=== PATIENT | female | born 1940 | race Caucasian/White ===

== ENCOUNTER 2018-08-23 06:15 | Inpatient (IN) ==
[2018-08-23] MEDS ORDERED: Metoprolol Tartrate 25 MG Tablet PO ONE (06:41)
[2018-08-23] MEDS ORDERED: Chlorhexidine Gluconate 2% 1 Pack (2 Cloths) TOPICAL ONE (06:41)
[2018-08-23] MEDS ORDERED: HYDROmorphone PF Inj 2 MG/ML Vial ONE (06:43)
[2018-08-23] MEDS ORDERED: Sugammadex Inj 200 MG/2 ML Vial IV.PUSH ONE (06:43)
[2018-08-23] MEDS ORDERED: ceFAZolin 2 GM IV; once IV.SIG PRN (06:46)
[2018-08-23] MEDS ORDERED: Sodium Chlor 0.9% Inj 500 ML IV.SIG SCH (07:00)
[2018-08-23] MEDS ORDERED: Levothyroxine 50 MCG Tablet PO ONE (07:45)
--- NOTE | 2018-08-23 10:18 | P.OP ---
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 Request were made for bilateral ureteral catheter insertion. Patient was brought to the operating room placed in the dorsolithotomy position. She was prepped and draped you sterile fashion and preprocedure antibiotics were administered. General endotracheal tube anesthesia was also administered. 22 Polish cystoscope was inserted in the bladder and the ureteral orifice was identified a 5 Polish opening catheter was inserted into the left ureteral orifice without difficulty and up into the kidney. This was again repeated on the right side without difficulty. The Ng was inserted and the catheters were attached to the Ng. The patient tolerated procedure well.
[2018-08-23] MEDS ORDERED: Lidocaine PF 1% Inj 5 ML Syringe OTHER ONE (12:00)
[2018-08-23] MEDS ORDERED: Phenylephrine/NS 1000 MCG/10ML Syringe IV.PUSH ONE (12:00)
[2018-08-23] MEDS ORDERED: Clotrimazole 1% Cream 15 GM Tube TOPICAL PRN (13:51)
[2018-08-23] MEDS ORDERED: Naloxone Inj 0.4 MG/ML Vial IV.PUSH PRN (14:05)
[2018-08-23] MEDS ORDERED: fentaNYL Citrate Inj 100 MCG/2 ML Ampul ONE (14:24)
[2018-08-23 14:46] LABS: Baso % (Auto) 0.2 % (0.0-2.0); Hematocrit 29.2 % (35.0-46.0); Hemoglobin 9.5 gm/dL (11.6-15.3); Lymph # (Auto) 0.9 th/mm3 (1.0-4.8); Lymph % (Auto) 8.5 % (9.0-44.0); Mean Corpuscular HGB Conc 32.6 % (32.0-36.0); Mean Corpuscular Hemoglobin 28.9 pg (27.0-34.0); Mean Corpuscular Volume 88.8 fL (80.0-100.0); Mean Platelet Volume 9.5 fL (7.0-11.0); Mono # (Auto) 0.4 th/mm3 (0.0-0.9); Mono % (Auto) 3.6 % (0.0-8.0); Neut # (Auto) 9.6 th/mm3 (1.8-7.7); Neut % (Auto) 87.7 % (16.0-70.0); Platelet Count 179 th/mm3 (150-450); Red Blood Count 3.29 mil/mm3 (4.00-5.30); White Blood Count 10.9 th/mm3 (4.0-11.0)
[2018-08-23] MEDS: Dextrose 5%/NaCl 0.9% Inj 1,000 ML IV.CONT SCH (14:48)
[2018-08-23] MEDS: Morphine Inj 30 MG/30 ML PCA.VIAL PCA PRN (15:17)
[2018-08-23 15:26] LABS: Calcium 7.5 mg/dL (8.5-10.1)
[2018-08-23 15:29] LABS: Potassium 3.4 meq/L (3.5-5.1)
[2018-08-23] MEDS: Dextrose 5%/NaCl 0.9% Inj 1,000 ML IV.SIG SCH ×2 (16:00→17:42)
[2018-08-23] MEDS: ceFAZolin Inj 1,000 MG in Sodium Chlor 0.9% Inj 100 ML IV.SIG SCH (18:51)
[2018-08-23] MEDS: Heparin - SQ 10,000 UNITS/ML Vial SQ SCH (20:59)
[2018-08-23] MEDS: Famotidine PF Inj 20 MG/2 ML Vial IV.PUSH SCH (21:00)
[2018-08-24] MEDS: ceFAZolin Inj 1,000 MG in Sodium Chlor 0.9% Inj 100 ML IV.SIG SCH ×2 (02:12→10:00)
[2018-08-24] MEDS: Dextrose 5%/NaCl 0.9% Inj 1,000 ML IV.CONT SCH ×3 (02:12→14:25)
[2018-08-24] MEDS: Levothyroxine 50 MCG Tablet PO SCH (06:16)
[2018-08-24 07:00] LABS: Baso % (Auto) 0.2 % (0.0-2.0); Eos % (Auto) 0.1 % (0.0-4.0); Hemoglobin 9.8 gm/dL (11.6-15.3); Lymph # (Auto) 0.7 th/mm3 (1.0-4.8); Lymph % (Auto) 5.1 % (9.0-44.0); Mean Corpuscular HGB Conc 32.7 % (32.0-36.0); Mean Corpuscular Hemoglobin 28.6 pg (27.0-34.0); Mean Corpuscular Volume 87.6 fL (80.0-100.0); Mean Platelet Volume 9.7 fL (7.0-11.0); Mono # (Auto) 0.6 th/mm3 (0.0-0.9); Mono % (Auto) 4.7 % (0.0-8.0); Neut % (Auto) 89.9 % (16.0-70.0); Platelet Count 204 th/mm3 (150-450); Red Blood Count 3.42 mil/mm3 (4.00-5.30); Red Cell Distribution Width 18.6 % (11.6-17.2); White Blood Count 13.4 th/mm3 (4.0-11.0)
[2018-08-24 07:33] LABS: Calcium 7.9 mg/dL (8.5-10.1)
[2018-08-24 07:38] LABS: Potassium 2.4 meq/L (3.5-5.1)
[2018-08-24] MEDS ORDERED: Potassium Chloride 25 MEQ Effervescent Tablet PO PRN (08:53)
[2018-08-24] MEDS ORDERED: Potassium Chlor 40 mEq Premix 40 MEQ/100 ML PIGGYBACK IV.SIG PRN ×2 (08:53)
[2018-08-24] MEDS ORDERED: Potassium Chlor 20 mEq Premix 20 MEQ/100 ML PIGGYBACK IV.SIG PRN (08:53)
[2018-08-24] MEDS: Heparin - SQ 10,000 UNITS/ML Vial SQ SCH ×2 (09:46→20:51)
[2018-08-24] MEDS: Famotidine PF Inj 20 MG/2 ML Vial IV.PUSH SCH ×2 (09:48→20:51)
[2018-08-24] MEDS: Potassium Chlor 20 mEq Premix 20 MEQ/100 ML PIGGYBACK IV.SIG SCH ×2 (09:49→12:00)
--- NOTE | 2018-08-24 11:11 | P.PN ---
Subjective Interval history: POD#1 s/p robotic LAR, COLLIN, SBR, TD splenic flexure comfortable, no nausea Physical Exam Vital signs: Vital Signs 08/23/18 14:12 08/23/18 14:15 08/23/18 14:30 Temperature 95.6 F L Pulse Rate 80 79 81 Respiratory Rate 20 15 13 Blood Pressure 136/99 H 142/65 H 137/65 Pulse Oximetry 100 100 100 08/23/18 14:45 08/23/18 14:49 08/23/18 15:00 Temperature 98 F Pulse Rate 80 79 Respiratory Rate 14 15 Blood Pressure 138/65 134/63 Pulse Oximetry 100 100 100 08/23/18 15:25 08/23/18 16:00 08/23/18 16:26 Temperature 95.8 F L Pulse Rate 83 90 Respiratory Rate 16 Blood Pressure 148/71 H Pulse Oximetry 100 08/23/18 17:00 08/23/18 17:05 08/23/18 17:37 Temperature 96.4 F L Pulse Rate 92 H Respiratory Rate 16 Blood Pressure Pulse Oximetry 08/23/18 17:42 08/23/18 18:37 08/23/18 19:00 Temperature 97.4 F L 97.8 F Pulse Rate 92 H 94 H Respiratory Rate 18 Blood Pressure 143/65 H Pulse Oximetry 100 08/23/18 20:00 08/23/18 21:00 08/23/18 22:00 Temperature Pulse Rate 92 H 100 H 94 H Respiratory Rate Blood Pressure Pulse Oximetry 08/23/18 23:00 08/24/18 00:00 08/24/18 01:00 Temperature 97.4 F L Pulse Rate 100 H 94 H 94 H Respiratory Rate 16 Blood Pressure 138/63 Pulse Oximetry 98 08/24/18 02:00 08/24/18 03:00 08/24/18 04:00 Temperature 97.8 F Pulse Rate 92 H 104 H 100 H Respiratory Rate 16 Blood Pressure 138/64 Pulse Oximetry 98 08/24/18 05:00 08/24/18 06:00 Temperature Pulse Rate 99 H 102 H Respiratory Rate Blood Pressure Pulse Oximetry Intake & Output 08/23/18 08/24/18 08/24/18 18:59 06:59 18:59 Intake Total 2370 / 2370 2680 / 2680 100 / 100 Output Total 250 / 250 1175 / 1175 Balance 2120 / 2120 1505 / 1505 100 / 100 Weight 59.5 kg Intake: IV 2250 / 2250 2200 / 2200 100 / 100 D5W/Normal Saline Inj 1,000 ML 1000 / 1000 @ 125 mls/hr IV.CONT .Q8H [facility] Rx#:[id number] D5W/Normal Saline Inj 1,000 ML 1000 / 1000 @ 125 mls/hr IV.SIG .Q8H [facility] Rx #:[id number] LR 1000 mL Inj 1,000 ML @ 30 2000 / 2000 mls/hr IV.SIG .Q24H [facility] Rx#: [id number] Ancef 2 GM Premix Inj 2 gm In 50 / 50 50 ml @ 100 mls/hr IV.SIG [employer] PRN Rx#:[id number] Ancef Inj 1,000 MG In NS Inj 200 / 200 100 ML @ 200 mls/hr IV.SIG Q8H [facility] Rx#:[id number] Flagyl 500 MG Inj 100 ML @ 200 200 / 200 100 / 100 mls/hr IV.SIG Q8H [facility] Rx#: [id number] Oral 120 / 120 480 / 480 Output: Urine 150 / 150 750 / 750 Estimated Blood Loss 100 / 100 Urine Amount (Catheter) 425 / 425 Indwelling Urethral Catheter 425 / 425 Other: # Voids 2 - Routine Abdominal Exam Comments: soft, nondistended, tender dressings c/d/i - Urinary Catheter Management Indwelling Urethral Catheter Cath placed during this visit: yes Reason for continuing: Hourly intake/output Insertion date: 08/23/18 Results - Labs CBC & Chem 7: 08/24/18 06:20 08/24/18 06:20 Laboratory Results - last 24 hr 08/23/18 08/23/18 08/24/18 14:30 14:30 06:20 WBC 10.9 13.4 H RBC 3.29 L 3.42 L Hgb 9.5 L 9.8 L Hct 29.2 L 30.0 L MCV 88.8 87.6 MCH 28.9 28.6 MCHC 32.6 32.7 RDW 19.0 H 18.6 H Plt Count 179 204 MPV 9.5 9.7 Neut % (Auto) 87.7 H 89.9 H Lymph % (Auto) 8.5 L 5.1 L [place] % (Auto) 3.6 4.7 Eos % (Auto) 0.0 0.1 Baso % (Auto) 0.2 0.2 Neut # (Auto) 9.6 H 12.0 H Lymph # (Auto) 0.9 L 0.7 L [place] # (Auto) 0.4 0.6 Eos # (Auto) 0.0 0.0 Baso # (Auto) 0.0 0.0 WBC Differential . . Differential Comment Auto diff final Auto diff final Sodium 139 Potassium 3.4 L Chloride 97 L Carbon Dioxide 33.0 H Anion Gap 9 BUN 18 Creatinine 1.14 H Estimated GFR 46 L Random Glucose 141 H Calcium 7.5 L 08/24/18 06:20 WBC RBC Hgb Hct MCV MCH MCHC RDW Plt Count MPV Neut % (Auto) Lymph % (Auto) [place] % (Auto) Eos % (Auto) Baso % (Auto) Neut # (Auto) Lymph # (Auto) [place] # (Auto) Eos # (Auto) Baso # (Auto) WBC Differential Differential Comment Sodium 140 Potassium 2.4 L* D Chloride 100 Carbon Dioxide 31.0 Anion Gap 9 BUN 11 Creatinine 0.97 Estimated GFR 56 L Random Glucose 171 H Calcium 7.9 L Assessment and Plan - Assessment (1) Colovaginal fistula Code(s): N82.4 - Other female intestinal-genital tract fistulae Status: Acute (2) Diverticulitis Code(s): K57.92 - Diverticulitis of intestine, part unspecified, without perforation or abscess without bleeding Status: Acute Plan: Advance diet Mobilize Replace K D/C robles
[2018-08-24] MEDS: Morphine Inj 30 MG/30 ML PCA.VIAL PCA PRN (18:34)
[2018-08-24 20:06] LABS: Calcium 8.1 mg/dL (8.5-10.1); Carbon Dioxide 26.3 meq/L (21.0-32.0); Potassium 3.1 meq/L (3.5-5.1)
[2018-08-24] MEDS: Potassium Chlor 20 mEq Premix 20 MEQ/100 ML PIGGYBACK IV.SIG PRN (22:29)
[2018-08-25] MEDS: Potassium Chlor 20 mEq Premix 20 MEQ/100 ML PIGGYBACK IV.SIG PRN ×3 (00:15→04:20)
[2018-08-25] MEDS: Dextrose 5%/NaCl 0.9% Inj 1,000 ML IV.CONT SCH (04:20)
[2018-08-25] MEDS: Levothyroxine 50 MCG Tablet PO SCH (05:17)
[2018-08-25 07:54] LABS: Baso % (Auto) 0.5 % (0.0-2.0); Eos % (Auto) 0.1 % (0.0-4.0); Hematocrit 27.6 % (35.0-46.0); Lymph # (Auto) 1.1 th/mm3 (1.0-4.8); Lymph % (Auto) 12.7 % (9.0-44.0); Mean Corpuscular HGB Conc 32.8 % (32.0-36.0); Mean Corpuscular Hemoglobin 28.9 pg (27.0-34.0); Mean Corpuscular Volume 88.2 fL (80.0-100.0); Mean Platelet Volume 9.7 fL (7.0-11.0); Mono # (Auto) 0.7 th/mm3 (0.0-0.9); Mono % (Auto) 8.1 % (0.0-8.0); Neut # (Auto) 6.9 th/mm3 (1.8-7.7); Neut % (Auto) 78.6 % (16.0-70.0); Platelet Count 219 th/mm3 (150-450); Red Blood Count 3.13 mil/mm3 (4.00-5.30); Red Cell Distribution Width 18.9 % (11.6-17.2); White Blood Count 8.7 th/mm3 (4.0-11.0)
[2018-08-25 08:25] LABS: Calcium 8.1 mg/dL (8.5-10.1); Carbon Dioxide 28.5 meq/L (21.0-32.0)
[2018-08-25] MEDS: Heparin - SQ 10,000 UNITS/ML Vial SQ SCH ×2 (08:42→20:47)
[2018-08-25] MEDS: Famotidine PF Inj 20 MG/2 ML Vial IV.PUSH SCH ×2 (08:43→20:48)
--- NOTE | 2018-08-25 11:55 | P.PN ---
Subjective Interval history: POD#2 s/p robotic LAR, SBO, COLLIN, TD splenic flexure comfortable, minimal pain Physical Exam Vital signs: Vital Signs 08/24/18 12:00 08/24/18 13:00 08/24/18 14:00 Temperature Pulse Rate 96 H 101 H 98 H Respiratory Rate Blood Pressure Pulse Oximetry 08/24/18 15:00 08/24/18 16:00 08/24/18 17:00 Temperature 97.9 F Pulse Rate 101 H 114 H 114 H Respiratory Rate 16 Blood Pressure 116/59 L Pulse Oximetry 96 08/24/18 18:00 08/24/18 19:00 08/24/18 20:00 Temperature 97.7 F Pulse Rate 117 H 117 H 106 H Respiratory Rate 18 Blood Pressure 109/65 Pulse Oximetry 97 08/24/18 21:00 08/24/18 22:00 08/24/18 23:00 Temperature 98.1 F Pulse Rate 104 H 100 H 99 H Respiratory Rate 16 Blood Pressure 103/55 L Pulse Oximetry 98 08/25/18 00:00 08/25/18 01:00 08/25/18 02:00 Temperature Pulse Rate 96 H 96 H 96 H Respiratory Rate Blood Pressure Pulse Oximetry 08/25/18 03:00 08/25/18 04:00 08/25/18 05:00 Temperature 98.2 F Pulse Rate 98 H 94 H 99 H Respiratory Rate 14 Blood Pressure 117/60 Pulse Oximetry 100 08/25/18 06:00 08/25/18 07:00 08/25/18 08:00 Temperature 98.5 F Pulse Rate 98 H 88 98 H Respiratory Rate 14 Blood Pressure 124/76 Pulse Oximetry 96 08/25/18 09:00 08/25/18 10:00 08/25/18 11:00 Temperature 98.1 F Pulse Rate 122 H 99 H 94 H Respiratory Rate 16 Blood Pressure 108/53 L Pulse Oximetry 100 Intake & Output 08/24/18 08/25/18 08/25/18 18:59 06:59 18:59 Intake Total 2700 / 2700 1640 / 1640 Output Total 1500 / 1500 Balance 1200 / 1200 1640 / 1640 Weight 60.5 kg Intake: IV 1500 / 1500 1400 / 1400 D5W/Normal Saline Inj 1,000 ML 1000 / 1000 1000 / 1000 @ 75 mls/hr IV.CONT .[id number] [facility] Rx#:[id number] KCl 20 mEq Premix Inj 20 meq In 200 / 200 400 / 400 100 ml @ 50 mls/hr IV.SIG Q2H [facility] Rx#:[id number] Ancef Inj 1,000 MG In NS Inj 100 / 100 100 ML @ 200 mls/hr IV.SIG Q8H [facility] Rx#:[id number] Flagyl 500 MG Inj 100 ML @ 200 200 / 200 mls/hr IV.SIG Q8H [facility] Rx#: [id number] Oral 1200 / 1200 240 / 240 Output: Urine 400 / 400 Urine Amount (Catheter) 1100 / 1100 Indwelling Urethral Catheter 1100 / 1100 Other: # Voids 3 - Routine Abdominal Exam Comments: abdomen soft, mild distension, tender wounds clean - Urinary Catheter Management Indwelling Urethral Catheter Cath placed during this visit: yes, but has since been removed by the nurse Reason for continuing: Decision to DC catheter Insertion date: 08/23/18 Removal date: 08/24/18 Removal time: 14:00 Results - Labs CBC & Chem 7: 08/25/18 07:11 08/25/18 07:11 Laboratory Results - last 24 hr 08/24/18 08/25/18 08/25/18 19:16 07:11 07:11 WBC 8.7 RBC 3.13 L Hgb 9.0 L Hct 27.6 L MCV 88.2 MCH 28.9 MCHC 32.8 RDW 18.9 H Plt Count 219 MPV 9.7 Neut % (Auto) 78.6 H Lymph % (Auto) 12.7 [place] % (Auto) 8.1 H Eos % (Auto) 0.1 Baso % (Auto) 0.5 Neut # (Auto) 6.9 Lymph # (Auto) 1.1 [place] # (Auto) 0.7 Eos # (Auto) 0.0 Baso # (Auto) 0.0 WBC Differential . Differential Comment Auto diff final Sodium 142 144 Potassium 3.1 L 4.0 D Chloride 107 109 H Carbon Dioxide 26.3 28.5 Anion Gap 9 7 BUN 8 7 Creatinine 0.90 0.79 Estimated GFR 61 L 70 L Random Glucose 150 H 119 H Calcium 8.1 L 8.1 L Assessment and Plan - Assessment (1) Colovaginal fistula Code(s): N82.4 - Other female intestinal-genital tract fistulae Status: Acute (2) Diverticulitis Code(s): K57.92 - Diverticulitis of intestine, part unspecified, without perforation or abscess without bleeding Status: Acute Plan: Advance diet Mobilize transfer to N
[2018-08-26] MEDS: Dextrose 5%/NaCl 0.9% Inj 1,000 ML IV.CONT SCH (01:03)
[2018-08-26] MEDS: Levothyroxine 50 MCG Tablet PO SCH (05:52)
--- NOTE | 2018-08-26 07:26 | MP ---
cc: Crsitela Villegas MD, Dr. DATE OF OPERATION: 08/23/2018 PREOPERATIVE DIAGNOSES: 1. Colovaginal fistula. 2. Diverticulitis. 3. Adhesions. POSTOPERATIVE DIAGNOSIS: 1. Colovaginal fistula. 2. Diverticulitis. 3. Adhesions. PROCEDURE PERFORMED: 1. Robotic/laparoscopic extensive lysis of adhesions. 2. Robotic low anterior resection. 3. Robotic small bowel resection. 4. Robotic takedown of the splenic flexure. SURGEON: Cristela Villegas MD PUMP AND BLOWER OPERATOR: Karthik. ANESTHESIA: General per ET tube. ESTIMATED BLOOD LOSS: 100 mL. OPERATIVE INDICATIONS: The patient is a 78-year-old female with clinical evidence of a colovaginal fistula and history consistent with diverticulitis. OPERATIVE FINDINGS: The patient had a large phlegmon in the mid sigmoid colon that was folded over and adherent to the vaginal cuff, the anterior surface of the rectum, and the left pelvic sidewall. In addition, a loop of mid ileum was pulled into the phlegmon and adherent as well. The remainder of the bowel was visibly normal, as was the liver. The uterus, ovaries and gallbladder were absent. OPERATIVE COURSE: The patient was brought to the operating room, and placed in the supine position. After induction of general anesthesia, the patient was placed in Matthew stirrups and all bony prominences were carefully padded. The skin of the anterior abdominal wall, as well as the perineal area, was then prepped and draped in the usual sterile fashion. Dr. Hall then came in and performed cystoscopy with placement of bilateral ureteral catheters, please see his operative note for details. A site was then chosen for the camera, being located just to the right and above the umbilicus. A 10/12 trocar was placed at this location, under direct vision using the laparoscope. CO2 insufflation was then begun and a brief abdominal survey was then performed, with nothing noted that would preclude the robotic approach. She did have some adhesions of the omentum to the periumbilical area. A #1 port was then placed just inside the right anterior superior iliac spine. This was also a 10/12. A #5 assist port was placed into the right costal margin, equidistant from the #1 and the camera port. The adhesions of the omentum to the anterior abdominal wall were then dissected free using electrocautery. The patient was hydroplaned with head down and slightly to the right and that point, the patient was noted to have adhesions with a sigmoid colon phlegmon stuck firmly down into the pelvis with the small bowel firmly attached to it. I was able to clear one loop of small bowel from that area fairly easily, but the other small bowel loop was quite adherent, so I elected to do this with the robot. The remainder of the ports were placed as follows: The #3 port was placed in the left anterior axillary line, on a line with the umbilicus, and the #2 port was placed just above the umbilicus, in the left midclavicular line. The robot was then docked. The small bowel was then slowly and cautiously dissected free from the phlegmon using electrocautery. Eventually, we had full mobility of the small bowel and I did make a note to check it again later though, as it had been quite adherent and somewhat affected by the inflammation. The small bowel was brought up and out of the pelvis and to the right. The peritoneum on the right was scored and dissection was dissection continued in the posterior plane posterior to the vessels, until the left ureter was clearly identified and swept away from the specimen. Additional dissection continued up to the lateral sidewall and cephalad to the furthest extent that we could. A window was then made around the inferior mesenteric vessels and a white load of the [place] [employer] stapler was placed across the vessels. This was closed, held for 30 seconds, fired, and removed. There was a small area of bleeding posteriorly that was controlled using cautery. Dissection then continued posteriorly to the rectosigmoid, dissecting down into the pelvis to the level of the distal rectum. The phlegmon was then slowly and painstakingly dissected free from the vaginal cuff, left pelvic sidewall and anterior rectum, using slow and tedious electrocautery for dissection. There was quite a bit of oozing from the inflammatory area. Eventually, however, we were able to open that up and I was able to visualize the distal rectum. It was soft and appeared healthy without inflammation. However, anteriorly I did have to open the cul-de-sac to allow better mobility and also to get a low enough on the bowel to allow for a healthy anastomosis. This was just below the level of the cul-de-sac. The mesentery at this level was divided using the Harmonic scalpel and an [place] [employer] stapler was placed across the bowel at this level. A sponge stick was placed in the rectum and came up nicely and then, due to the fairly tight anus, a 25 EEA stapler was brought and placed through the anus and up to rectal stump without difficulty. A small amount of fibrofatty tissue was cleared from the bowel at this level. At this point, we evaluated and I felt that we would need to take down the splenic flexure to get adequate length. Dissection continued posteriorly, freeing the lateral attachments of the descending colon, and posteriorly, freeing it from Gerota's fascia. Dissection continued up and around the splenic flexure, but I did not feel I needed to go all the way over to the midline. At this point, after evaluation, I felt that I had adequate length of bowel. The robot was then undocked. A 12 cm incision was made in the suprapubic area and using electrocautery, dissection was carried down to the fascia of the anterior abdominal wall. The anterior fascia of the abdominal wall was divided using electrocautery, and the medial fibers of the rectus abdominus were divided as well. The posterior fascia/peritoneum was then divided the length of the skin incision. A wound protector was then placed. The proximal stapled end of the bowel was grasped and pulled anteriorly up and out through the incision. A site was then chosen for proximal division of the bowel, where the bowel was pink and healthy circumferentially. The mesentery at this level was serially divided and ligated using 0 Vicryl ties. A pursestring stapling device was placed across the bowel at this level and the distal bowel was amputated. The anvil from the 25 EEA stapler was placed into the bowel and the previously placed pursestring suture was then secured. Attention was then turned to the small bowel. Beginning at the cecum, the small bowel was then examined. The area just proximal to the cecum did have some inflammation in the mesentery, but the bowel itself appeared healthy; however, just at the mid ileum, there was an area measuring possibly 8-10 cm in length that was quite inflamed and irritated and thickened, and I felt that it was prudent to remove this. An incision was made using cautery along the antimesenteric borders of both the proximal and distal loop and one limb of the gastrointestinal staple was placed down each limb of the bowel. This was closed along the antimesenteric border, fired, and removed. A TX 60 stapling device was placed across the bowel, proximal to the anastomosis. The mesentery was then divided and ligated using 0 Vicryl ties. The mesenteric defect was then closed in an interrupted fashion using 3-0 Vicryl, and a simple stay suture was placed in the distal end of the anastomosis using 3-0 Vicryl. The anastomosis was palpated and found to be widely patent. This was then returned back into the peritoneal cavity. At this point, we moved forward with her anastomosis. We noted that the distal 2 cm of the bowel on the proximal end was somewhat dusky, so I elected to dissect back an additional 2 cm. A repeat pursestring stapler was placed across the bowel at this level and the distal bowel was amputated and sent as a specimen. The anvil was then retrieved and replaced into the cut end of the bowel and the pursestring suture was secured. The bowel appeared pink and healthy circumferentially. After gentle digital dilatation of the anus, the 25 EEA stapler was again advanced through the anus and up to the rectal stump. The spike was advanced just posterior to the staple line, and the anvil was into the spike, being careful that the bowel was not twisted. The stapler was closed, held for 30 seconds, fired, and removed, thus creating an enteroenterotomy. The anastomosis appeared pink and healthy circumferentially and lay in a nice orientation without tension. A small amount of warm normal saline was placed in the pelvis and the proximal bowel was occluded with digital pressure. Air was insufflated into the rectum until tension was on the anastomosis with no sign of any leakage noted. Powdered Surgicel was then dusted into the pelvis and across the area of the inflammatory changes in the lateral pelvic sidewall. The posterior fascia of the anterior abdominal wall was closed in a running fashion, using looped #1 PDS, and the anterior fascia was closed in running fashion, using looped #1 PDS. The wound was copiously irrigated with warm normal saline and the skin was closed using 3-0 Vicryl. A Tegaderm was then placed and CO2 insufflation was then resumed. All dissection beds were examined with no sign of any significant bleeding. The fascia at the 10/12 trocar sites were then closed using the grasper device and 0 Vicryl suture. These were placed, but not secured until the CO2 was removed. CO2 was then removed and the remainder of the trocars were removed. The fascial sutures were then secured and the skin at the trocar sites was closed in an interrupted sideways fashion using 0 Vicryl. The right ureteral stent was then removed. Sterile dressings were then applied. All sponge, needle and instrument counts were correct and the patient was returned to the Postanesthesia Care Unit in stable condition. MD SHAWANDA Davalos/juan j , 02:05 PM , 02:24 PM MAX
[2018-08-26] MEDS: Heparin - SQ 10,000 UNITS/ML Vial SQ SCH ×2 (08:52→20:26)
[2018-08-26] MEDS: Famotidine PF Inj 20 MG/2 ML Vial IV.PUSH SCH ×2 (08:52→20:27)
[2018-08-26] MEDS ORDERED: Sod Chloride 0.9% Inj 1,000 ML IV.SIG SCH (10:30)
[2018-08-26] MEDS ORDERED: Famotidine 20 MG Tablet PO SCH (11:00)
--- NOTE | 2018-08-26 16:30 | P.PN ---
Subjective Interval history: POD#3 s/p robotic LAR, COLLIN, SBR, TD splenic flexure comfortable, emesis earlier Physical Exam Vital signs: Vital Signs 08/25/18 17:00 08/25/18 18:00 08/25/18 19:00 Temperature 98.5 F Pulse Rate 100 H 119 H 105 H Respiratory Rate 16 Blood Pressure 133/67 Pulse Oximetry 98 08/25/18 20:00 08/25/18 20:48 08/25/18 21:00 Temperature Pulse Rate 104 H 98 H Respiratory Rate 16 Blood Pressure Pulse Oximetry 08/25/18 22:00 08/25/18 23:00 08/26/18 00:00 Temperature 98.5 F Pulse Rate 104 H 105 H 91 H Respiratory Rate 16 Blood Pressure 128/60 Pulse Oximetry 97 08/26/18 00:59 08/26/18 01:00 08/26/18 02:00 Temperature Pulse Rate 96 H 92 H 92 H Respiratory Rate Blood Pressure Pulse Oximetry 08/26/18 03:00 08/26/18 04:00 08/26/18 05:00 Temperature 98.6 F Pulse Rate 97 H 92 H 98 H Respiratory Rate 16 Blood Pressure 139/64 Pulse Oximetry 99 08/26/18 06:00 08/26/18 07:00 08/26/18 08:00 Temperature Pulse Rate 108 H 103 H 96 H Respiratory Rate Blood Pressure Pulse Oximetry 08/26/18 08:40 08/26/18 09:00 08/26/18 10:00 Temperature 96.7 F L Pulse Rate 123 H 120 H 104 H Respiratory Rate 20 Blood Pressure 151/88 H Pulse Oximetry 95 08/26/18 11:00 08/26/18 11:11 08/26/18 12:00 Temperature 98.3 F Pulse Rate 105 H 103 H 114 H Respiratory Rate 18 Blood Pressure 148/79 H Pulse Oximetry 97 08/26/18 13:00 08/26/18 14:00 08/26/18 15:00 Temperature Pulse Rate 102 H 128 H 109 H Respiratory Rate Blood Pressure Pulse Oximetry 08/26/18 15:13 Temperature 97.4 F L Pulse Rate 108 H Respiratory Rate 18 Blood Pressure 140/74 Pulse Oximetry 97 Intake & Output 08/25/18 08/26/18 08/26/18 18:59 06:59 18:59 Intake Total 2080 / 2080 480 / 480 1000 / 1000 Output Total 550 / 550 700 / 700 Balance 1530 / 1530 -220 / -220 1000 / 1000 Weight 61 kg Intake: IV 1000 / 1000 1000 / 1000 D5W/Normal Saline Inj 1,000 ML 1000 / 1000 @ 40 mls/hr IV.CONT .Q24H [facility] Rx#:[id number] NS Inj 1,000 ML @ 999 mls/hr IV 1000 / 1000 .SIG .Q1H1M [facility] Rx#:[id number] Oral 1080 / 1080 480 / 480 Output: Urine 550 / 550 700 / 700 Other: # Voids 3 Date of Last Bowel Movement 08/23/18 - Routine Abdominal Exam Comments: soft, mild distension, tender wounds clean - Urinary Catheter Management Indwelling Urethral Catheter Cath placed during this visit: yes, but has since been removed by the nurse Reason for continuing: Decision to DC catheter Insertion date: 08/23/18 Removal date: 08/24/18 Removal time: 14:00 Results - Labs CBC & Chem 7: 08/25/18 07:11 08/25/18 07:11 Assessment and Plan - Assessment (1) Colovaginal fistula Code(s): N82.4 - Other female intestinal-genital tract fistulae Status: Acute (2) Diverticulitis Code(s): K57.92 - Diverticulitis of intestine, part unspecified, without perforation or abscess without bleeding Status: Acute Plan: hold on sips/chips NGT if further emesis Mobilize Await bowel function
[2018-08-26] MEDS: KCL 20 mEq/D5W/NaCl 0.9% Inj 1,000 ML IV.CONT SCH (18:00)
[2018-08-27 05:40] LABS: Baso % (Auto) 0.3 % (0.0-2.0); Eos # (Auto) 0.1 th/mm3 (0.0-0.4); Eos % (Auto) 1.4 % (0.0-4.0); Hematocrit 24.7 % (35.0-46.0); Lymph # (Auto) 0.9 th/mm3 (1.0-4.8); Lymph % (Auto) 15.1 % (9.0-44.0); Mean Corpuscular HGB Conc 32.6 % (32.0-36.0); Mean Corpuscular Hemoglobin 28.9 pg (27.0-34.0); Mean Corpuscular Volume 88.6 fL (80.0-100.0); Mean Platelet Volume 8.9 fL (7.0-11.0); Mono # (Auto) 0.5 th/mm3 (0.0-0.9); Mono % (Auto) 8.7 % (0.0-8.0); Neut # (Auto) 4.2 th/mm3 (1.8-7.7); Neut % (Auto) 74.5 % (16.0-70.0); Platelet Count 227 th/mm3 (150-450); Red Blood Count 2.78 mil/mm3 (4.00-5.30); Red Cell Distribution Width 18.7 % (11.6-17.2); White Blood Count 5.7 th/mm3 (4.0-11.0)
[2018-08-27 06:02] LABS: Calcium 7.8 mg/dL (8.5-10.1); Carbon Dioxide 27.4 meq/L (21.0-32.0); Potassium 3.5 meq/L (3.5-5.1)
[2018-08-27] MEDS: Levothyroxine 50 MCG Tablet PO SCH (06:38)
[2018-08-27] MEDS: Famotidine PF Inj 20 MG/2 ML Vial IV.PUSH SCH ×2 (08:35→21:00)
[2018-08-27] MEDS: Heparin - SQ 10,000 UNITS/ML Vial SQ SCH ×2 (08:37→21:01)
--- NOTE | 2018-08-27 13:06 | P.PN ---
Subjective Interval history: POD#4 s/p robotic LAR, COLLIN, SBR, TD splenic flexure no further nausea Physical Exam Vital signs: Vital Signs 08/26/18 14:00 08/26/18 15:00 08/26/18 15:13 Temperature 97.4 F L Pulse Rate 128 H 109 H 108 H Respiratory Rate 18 Blood Pressure 140/74 Pulse Oximetry 97 08/26/18 16:00 08/26/18 17:00 08/26/18 18:00 Temperature Pulse Rate 106 H 118 H 98 H Respiratory Rate Blood Pressure Pulse Oximetry 08/26/18 19:00 08/26/18 20:00 08/26/18 21:00 Temperature 98.3 F Pulse Rate 98 H 97 H 97 H Respiratory Rate 20 Blood Pressure 163/79 H Pulse Oximetry 98 08/26/18 22:00 08/26/18 23:00 08/27/18 00:00 Temperature 98.2 F Pulse Rate 96 H 95 H 93 H Respiratory Rate 18 Blood Pressure 132/62 Pulse Oximetry 95 08/27/18 01:00 08/27/18 02:00 08/27/18 03:00 Temperature 97.9 F Pulse Rate 96 H 88 103 H Respiratory Rate 22 Blood Pressure 155/75 H Pulse Oximetry 96 08/27/18 04:00 08/27/18 05:00 08/27/18 06:00 Temperature Pulse Rate 88 91 H 81 Respiratory Rate Blood Pressure Pulse Oximetry 08/27/18 07:00 Temperature 98.2 F Pulse Rate 104 H Respiratory Rate 18 Blood Pressure 159/83 H Pulse Oximetry 97 Intake & Output 08/26/18 08/27/18 08/27/18 18:59 06:59 18:59 Intake Total 1720 / 1720 549 / 549 Output Total 950 / 950 1350 / 1350 Balance 770 / 770 -801 / -801 Weight 62.5 kg Intake: IV 1000 / 1000 499 / 499 D5W/NS + KCL 20 mEq Inj 1,000 499 / 499 ML @ 42 mls/hr IV.CONT .[id number] [facility] Rx#:[id number] NS Inj 1,000 ML @ 999 mls/hr IV 1000 / 1000 .SIG .Q1H1M [facility] Rx#:[id number] Oral 720 / 720 50 / 50 Output: Urine 950 / 950 1350 / 1350 Other: # Voids 4 Date of Last Bowel Movement 08/23/18 # Bowel Movements 0 0 - Routine Abdominal Exam Comments: soft, less distended, tender wounds clean - Urinary Catheter Management Indwelling Urethral Catheter Cath placed during this visit: yes, but has since been removed by the nurse Reason for continuing: Decision to DC catheter Insertion date: 08/23/18 Removal date: 08/24/18 Removal time: 14:00 Results - Labs CBC & Chem 7: 08/27/18 05:00 08/27/18 05:00 Laboratory Results - last 24 hr 08/27/18 08/27/18 05:00 05:00 WBC 5.7 RBC 2.78 L Hgb 8.0 L Hct 24.7 L MCV 88.6 MCH 28.9 MCHC 32.6 RDW 18.7 H Plt Count 227 MPV 8.9 Neut % (Auto) 74.5 H Lymph % (Auto) 15.1 [place] % (Auto) 8.7 H Eos % (Auto) 1.4 Baso % (Auto) 0.3 Neut # (Auto) 4.2 Lymph # (Auto) 0.9 L [place] # (Auto) 0.5 Eos # (Auto) 0.1 Baso # (Auto) 0.0 WBC Differential . Differential Comment Auto diff final Sodium 147 H Potassium 3.5 Chloride 111 H Carbon Dioxide 27.4 Anion Gap 9 BUN 8 Creatinine 0.69 Estimated GFR 82 L Random Glucose 94 Calcium 7.8 L Assessment and Plan - Assessment (1) Colovaginal fistula Code(s): N82.4 - Other female intestinal-genital tract fistulae Status: Acute (2) Diverticulitis Code(s): K57.92 - Diverticulitis of intestine, part unspecified, without perforation or abscess without bleeding Status: Acute Plan: Advance diet D/C tele [employer]
--- NOTE | 2018-08-27 15:56 | ECG ---
Date Performed: 08/26/2018 Time Performed: 09:33:08 PTAGE: 78 years EKG: Sinus tachycardia. Anteroseptal infarct - age undetermined Possible inferior infarct - age undetermined Low QRS voltages in precordial leads Abnormal ECG PREVIOUS TRACING : 08/16/2018 09.14 Since the previous tracing, no significant change noted DOCTOR: Giorgio Maurer Interpretating Date/Time 08/27/2018 15:54:34
[2018-08-27] MEDS: KCL 20 mEq/D5W/NaCl 0.9% Inj 1,000 ML IV.CONT SCH (22:14)
[2018-08-28 03:52] VITALS: RESP 16; O2SAT 96
[2018-08-28] MEDS: Levothyroxine 50 MCG Tablet PO SCH (05:16)
[2018-08-28 08:40] VITALS: BP 146/72; PULSE 108; TEMP 97.9
[2018-08-28] MEDS: Famotidine PF Inj 20 MG/2 ML Vial IV.PUSH SCH (08:42)
[2018-08-28] MEDS: Heparin - SQ 10,000 UNITS/ML Vial SQ SCH (08:42)
--- NOTE | 2018-08-28 08:52 | P.PN ---
Subjective Interval history: POD#5 s/p LAR, COLLIN, SBR, TD Splenic flexure comfortable Physical Exam Vital signs: Vital Signs 08/27/18 09:00 08/27/18 10:00 08/27/18 11:00 Temperature 98.1 F Pulse Rate 102 H 98 H 112 H Respiratory Rate 18 Blood Pressure 157/75 H Pulse Oximetry 97 08/27/18 12:00 08/27/18 13:00 08/27/18 15:00 Temperature 98.1 F Pulse Rate 92 H 90 98 H Respiratory Rate 18 Blood Pressure 139/72 Pulse Oximetry 97 08/27/18 19:00 08/27/18 23:00 08/28/18 03:00 Temperature 98.2 F 97.8 F 97.7 F Pulse Rate 99 H 102 H 99 H Respiratory Rate 17 18 16 Blood Pressure 128/61 138/64 125/62 Pulse Oximetry 97 95 96 08/28/18 08:31 Temperature 97.9 F Pulse Rate 108 H Respiratory Rate Blood Pressure 146/72 H Pulse Oximetry Intake & Output 08/27/18 08/28/18 08/28/18 18:59 06:59 18:59 Intake Total 720 / 720 981 / 981 Output Total 2550 / 2550 1500 / 1500 Balance -1830 / -1830 -519 / -519 Weight 59.5 kg Intake: IV 501 / 501 D5W/NS + KCL 20 mEq Inj 1,000 501 / 501 ML @ 42 mls/hr IV.CONT .[id number] [facility] Rx#:[id number] Oral 720 / 720 480 / 480 Output: Urine 2550 / 2550 1500 / 1500 Other: # Voids 6 Date of Last Bowel Movement 08/27/18 08/28/18 # Bowel Movements 1 1 - Routine Abdominal Exam Comments: Doing well Home today - Urinary Catheter Management Indwelling Urethral Catheter Cath placed during this visit: yes, but has since been removed by the nurse Reason for continuing: Decision to DC catheter Insertion date: 08/23/18 Removal date: 08/24/18 Removal time: 14:00 Results - Labs CBC & Chem 7: 08/27/18 05:00 08/27/18 05:00 Assessment and Plan - Assessment (1) Colovaginal fistula Code(s): N82.4 - Other female intestinal-genital tract fistulae Status: Acute (2) Diverticulitis Code(s): K57.92 - Diverticulitis of intestine, part unspecified, without perforation or abscess without bleeding Status: Acute Plan: Advance diet D/C tele [employer]
--- NOTE | 2018-08-28 09:28 | MD ---
cc: Cristela Villegas MD DATE OF DISCHARGE: 08/28/2018 ADMISSION DIAGNOSES: 1. Colovaginal fistula. 2. Diverticulitis. 3. Hypothyroidism. DISCHARGE DIAGNOSES: 1. Colovaginal fistula. 2. Diverticulitis. 3. Hypothyroidism. PROCEDURES: 1. Cystoscopy with placement of bilateral ureteral catheters. 2. Robotic/laparoscopic extensive lysis of adhesions. 3. Robotic low anterior resection. 4. Robotic small bowel resection. 5. Robotic takedown of the splenic flexure. HOSPITAL COURSE: The patient is a 78-year-old female with clinical evidence of a colovaginal fistula and history consistent with diverticulitis. She was admitted to the hospital on 08/23/2018; and after an outpatient bowel prep, she was taken to the operating room where she underwent the above-named approach. Postoperatively, the patient did well with a slightly slow return of bowel and bladder function. At the time of discharge, however, she is having a good function. She is discharged with instructions to follow up with myself in the office. Cristela Villegas MD KW/rs , 08:57 AM , 09:01 AM
== END 2018-08-28 10:57 | disposition home or self-care (01) ==
LOC: HSDI 06:15 → HCPC 15:10
PROVIDERS: ADMIT Colon & Rectal Surgery; ATTEND Colon & Rectal Surgery